=== PATIENT | male | born 1980 | race Caucasian/White ===

== ENCOUNTER 2024-03-14 18:52 | Emergency (ER) | payer OTHER ==
[2024-03-14] MEDS ORDERED: ONDANSETRON 4 MG/2 ML VIAL ONE (19:15)
[2024-03-14] MEDS ORDERED: FAMOTIDINE 20 MG/2 ML VIAL IV ONE (19:15)
[2024-03-14 19:22] LABS: Absolute Basophils 0.1 K/uL (0-0.5); Absolute Eosinophils 0.3 K/uL (0-0.5); Absolute Lymphocytes (CBC) 1.4 K/uL (0.7-4.9); Absolute Monocytes 0.5 K/uL (0.1-1.3); Absolute Neutrophil 6.8 K/uL (1.8-8.0); Basophils % 0.7 % (0-1.3); Eosinophils % 3.3 % (0-4.4); Hematocrit 45.7 % (39.6-49.0); Hemoglobin 15.8 g/dL (13.6-17.9); Lymphocytes % 15.1 % (15.3-44.8); MCH 31.2 pg (27.0-35.0); MCHC 34.7 g/dL (32.0-36.0); MCV 89.8 fL (80-100); MPV 8.6 fL (7.6-11.3); Monocytes % 5.4 % (3.3-12.3); Neutrophils % 75.5 % (41.7-73.7); Nucleated Red Blood Cells % 0.1 % (0-0); Platelets 293 thou/uL (152-406); RBC Red Blood Cell Count 5.09 M/uL (4.33-5.43); Red Cell Distribution Width 12.8 % (12.1-15.2)
[2024-03-14 19:38] LABS: PT Prothrombin Time 11.8 SECONDS (9.4-12.5); Protime INR 1.06
[2024-03-14 19:53] LABS: ALT/SGPT 107 U/L (16-61); Albumin 3.6 g/dL (3.4-5.0); Alkaline Phosphatase 69 U/L (45-117); Anion Gap 8.2 mEq/L (5.0-15.0); BUN Blood Urea Nitrogen 16 mg/dL (7-18); Bicarbonate 28 mEq/L (21-32); Bilirubin Total 0.5 mg/dL (0.2-1.0); Globulin 3.7 g/dL (2.3-3.5); Glomerular Filtration Rate 72 ml/min (=/>90); Glucose Level 175 mg/dL (74-106); Lipase 41 U/L (13-75); Protein, Total 7.3 g/dL (6.4-8.2); Sodium Level 136 mEq/L (136-145); Troponin High Sensitivity 3.6 pg/mL (<58.9)
[2024-03-14 19:55] LABS: AST/SGOT 36 U/L (15-37); Bilirubin Direct < 0.2 mg/dL (0-0.2); Bilirubin Indirect, Calculated 0.3 mg/dL (0.2-0.8); Magnesium 2.2 mg/dL (1.6-2.4); Potassium 4.2 mEq/L (3.5-5.1)
--- NOTE | 2024-03-14 20:15 | RAD REPORT ---
EXAMINATION: ONE VIEW CHEST XR CLINICAL INDICATION: epigastric pain TECHNIQUE: Frontal chest projection is submitted. Examination is limited by patient positioning and t echnique. COMPARISON: No prior exam. FINDINGS: The lungs are well inflated and clear. The heart is normal in size. No displaced fractures identified . IMPRESSION: No acute intrathoracic abnormalities.
--- NOTE | 2024-03-14 21:28 | RAD REPORT ---
EXAM: CT brain without contrast HISTORY: DIZZINESS COMPARISON: None TECHNIQUE: Multiple contiguous axial images were obtained and a CT of the brain without contrast. Sag ittal and coronal reformats were performed. One or more of the following dose reduction techniques were used: Automated exposure control, adjust ment of the mA and/or kV according to patient size, and/or iterative reconstruction. FINDINGS: No evidence of hydrocephalus, intracranial hemorrhage, or extra-axial fluid collection. The brain is normal in morphology. No evidence of midline shift or areas of brain edema. The calvarium is intact. The visualized paranasal sinuses and mastoid air cells are essentially clear . IMPRESSION: No evidence of acute intracranial abnormality.
--- NOTE | 2024-03-14 21:43 | RAD REPORT ---
EXAMINATION: CT ABDOMEN AND PELVIS WITH CONTRAST CLINICAL INDICATION: EPIGASTRIC PAIN TECHNIQUE: CT abdomen and pelvis was performed, after the administration of IV contrast, as per [facility] protocol. Axial, sagittal and coronal reconstructions were obtained. One or more of the following dose reduction techniques were used: Automated exposure control, adjustment of the mA and k V according to patient size, and iterative reconstruction. Unless otherwise specified, incidental findings do not require dedicated imaging follow-up. COMPARISON: No prior exam. FINDINGS: LOWER CHEST: The visualized lung bases are clear. LIVER: Normal in size and contour. Tiny low-density lesions are too small to fully characterize but h ighly likely benign. Grossly unremarkable gallbladder. SPLEEN: Normal size. No focal lesion. PANCREAS: No mass, ductal dilation, or maximus-pancreatic fluid. ADRENALS: Normal; no mass. KIDNEYS: Normal size and contour. No hydronephrosis. Tiny calculus right kidney. GASTROINTESTINAL TRACT: No evidence of free air, significant intra-abdominal free fluid, bowel obstru ction or abscess. Mild sigmoid diverticulosis coli without diverticulitis. APPENDIX: Normal appendix. LYMPH NODES: No lymphadenopathy. MUSCULOSKELETAL: No acute or suspicious osseous abnormality. ADDITIONAL FINDINGS: Small fat-containing umbilical hernia. IMPRESSION: No acute or concerning abnormalities seen in the abdomen or pelvis.
--- NOTE | 2024-03-14 22:06 | ER ---
Nurse's Notes [facility] Name: Chilo Weinstein Age: 43 yrs Sex: Male : 1980 Arrival Date: 03/14/2024 Time: 18:52 Bed 17 Private MD: Diagnosis: Epigastric pain;Nausea with vomiting, unspecified;Dizziness and giddiness Presentation: 03/14 18:53 Chief complaint: EMS states: ABDOMINAL PAIN x1 HR, NO VOMITING. Coronavirus screen: At bp this time, the client does not indicate any symptoms associated with coronavirus-19. Ebola Screen: No symptoms or risks identified at this time. Initial Sepsis Screen: Does the patient meet any 2 criteria? No. Patient's initial sepsis screen is negative. Does the patient have a suspected source of infection? No. Patient's initial sepsis screen is negative. Risk Assessment: Do you want to hurt yourself or someone else? Patient reports no desire to harm self or others. Onset of symptoms was March 14, 2024 at 17:45. 18:53 Method Of Arrival: EMS: [facility] bp 18:53 Acuity: HILL[facility] 3 bp Triage Assessment: 18:54 General: Appears in no apparent distress. Behavior is calm, cooperative, appropriate bp for age. Pain: Complains of pain in abdomen. EENT: No deficits noted. Neuro: No deficits noted. Cardiovascular: No deficits noted. Respiratory: No deficits noted. GI: Reports upper abdominal pain. : No signs and/or symptoms were reported regarding the genitourinary system. Derm: No deficits noted. Musculoskeletal: No deficits noted. Historical: - Allergies: 18:54 No Known Allergies; bp - Home Meds: 18:54 None [Active]; bp - PMHx: 18:54 None; bp - Immunization history:: Adult Immunizations up to date. - Infectious Disease History:: Denies. - Social history:: Smoking status: Patient denies any tobacco usage or history of. Screenin:55 [facility] ED Fall Risk Assessment (Adult) History of falling in the last 3 months, bp including since admission No falls in past 3 months (0 pts) Confusion or Disorientation No (0 pts) Intoxicated or Sedated No (0 pts) Impaired Gait No (0 pts) Mobility Assist Device Used No (0 pt) Altered Elimination No (0 pt) Score/Fall Risk Level 0 - 2 = Low Risk. Abuse screen: Denies threats or abuse. Denies injuries from another. Nutritional screening: No deficits noted. Tuberculosis screening: No symptoms or risk factors identified. Assessment: 18:55 General: SEE TRIAGE NOTE. bp 19:10 Reassessment: Patient appears in no apparent distress at this time. Patient and/or kj2 family updated on plan of care and expected duration. Pain level reassessed. Patient is alert, oriented x 3, equal unlabored respirations, skin warm/dry/pink. 19:10 GI: Bowel sounds present X 4 quads. kj2 20:14 Reassessment: Patient appears in no apparent distress at this time. Patient and/or kj2 family updated on plan of care and expected duration. Pain level reassessed. Patient is alert, oriented x 3, equal unlabored respirations, skin warm/dry/pink. 21:56 Reassessment: Patient appears in no apparent distress at this time. Patient and/or kj2 family updated on plan of care and expected duration. Pain level reassessed. Patient is alert, oriented x 3, equal unlabored respirations, skin warm/dry/pink. 22:13 GI: Abd is non tender X 4 quads. kj2 Vital Signs: 18:53 BP 130 / 78; Pulse 84; Resp 16; Temp 98; Pulse Ox 97% ; bp 19:07 BP 120 / 74; Pulse 85; Resp 18; Pulse Ox 98% on R/A; kj2 20:13 BP 115 / 71; Pulse 76; Resp 18; Pulse Ox 98% on R/A; kj2 21:56 BP 120 / 73; Pulse 80; Resp 18; Pulse Ox 98% on R/A; kj2 ED Course: 18:53 Patient arrived in ED. bp 18:53 Jimmy Harmon PA is PHCP. cp 18:53 Jimmy Joyce MD is Attending Physician. cp 18:54 Triage completed. bp 18:54 Arm band placed on. bp 18:55 Patient has correct armband on for positive identification. bp 19:01 Farrukh Wagner, RN is Primary Nurse. bp 19:01 Initial lab(s) drawn, by mo, sent to lab. Inserted saline lock: 20 gauge in right bp antecubital area, using aseptic technique. Blood collected. Flushed with 10 mL NS. 19:07 Report received from DORI LONG. kj2 19:29 Provided Education on: CALL LIGHT, FALL PRECAUTIONS. kj2 20:14 XRAY Chest (1 view) In Process Unspecified. EDMS 21:26 CT Head Brain wo Cont In Process Unspecified. EDMS 21:33 CT Abd/Pelvis - IV Contrast Only In Process Unspecified. EDMS 22:06 Misbah Howard MD is Referral Physician. cp 22:15 IV discontinued, intact, bleeding controlled, No redness/swelling at site. Pressure kj2 dressing applied. 22:15 No provider procedures requiring assistance completed. kj2 Administered Medications: 19:28 Drug: Ondansetron IVP 4 mg IVP once; over 2 minutes Route: IVP; Site: right antecubital;kj2 20:13 Follow up: Response: No adverse reaction kj2 19:28 Drug: Famotidine IVP 20 mg IVP once; dilute with 10 mL 0.9% NaCl; give over 2 minutes kj2 Route: IVP; Site: right antecubital; 20:13 Follow up: Response: No adverse reaction kj2 Medication: 18:55 VIS not applicable for this client. bp Outcome: 22:06 Discharge ordered by . cp 22:14 Discharged to home ambulatory, kj2 22:14 Condition: stable 22:14 Discharge instructions given to patient, Instructed on discharge instructions, follow up and referral plans. Demonstrated understanding of instructions, follow-up care, 22:28 Patient left the ED. kj2 Signatures: Dispatcher [employer] EDIA Jimmy Harmon PA PA cp Peltier, Brian, RN RN bp Sophie Jimenez RN RN kj2
--- NOTE | 2024-03-14 22:06 | EDPHYS ---
Physician Documentation [facility] Name: Chilo Weinstein Age: 43 yrs Sex: Male : 1980 Arrival Date: 03/14/2024 Time: 18:52 Bed 17 Private MD: ED Physician Jimmy Joyce HPI: 03/14 19:00 This 43 yrs old Male presents to ER via EMS with complaints of Abdominal Pain. cp 19:00 The patient presents with abdominal pain in the epigastric area. Onset: The cp symptoms/episode began/occurred today. 19:00 The symptoms do not radiate. cp 19:00 Associated signs and symptoms: Pertinent positives: nausea, dizziness, Pertinent cp negatives: chest pain, constipation, diarrhea, fever, vomiting. The symptoms are described as waxing/waning. Severity of pain: in the emergency department the pain has improved mildly. Historical: - Allergies: 18:54 No Known Allergies; bp - Home Meds: 18:54 None [Active]; bp - PMHx: 18:54 None; bp - Immunization history:: Adult Immunizations up to date. - Infectious Disease History:: Denies. - Social history:: Smoking status: Patient denies any tobacco usage or history of. ROS: 19:05 Constitutional: Negative for body aches, chills, fever, cp 19:05 Eyes: Negative for injury, pain, redness, and discharge, cp 19:05 Cardiovascular: Negative for chest pain, palpitations, 19:05 Respiratory: Negative for cough, shortness of breath, wheezing, 19:05 Abdomen/GI: Positive for abdominal pain, nausea, vomiting, of the epigastric area, Negative for diarrhea, constipation, 19:05 Neuro: Positive for dizziness, Negative for altered mental status, headache, numbness, syncope, 19:05 All other systems are negative, Exam: 19:10 Constitutional: The patient appears in no acute distress, alert, awake, cp non-diaphoretic, non-toxic, well developed, well nourished, uncomfortable, 19:10 Head/Face: Normocephalic, atraumatic. cp 19:10 Eyes: Periorbital structures: appear normal, Conjunctiva: normal, no exudate, no injection, Sclera: no appreciated abnormality, Lids and lashes: appear normal, bilaterally, 19:10 ENT: External ear(s): are unremarkable, Nose: is normal, Mouth: Lips: moist, Oral mucosa: pink and intact, moist, Posterior pharynx: Airway: no evidence of obstruction, patent, 19:10 Chest/axilla: Inspection: normal, Palpation: crepitus, is not appreciated, tenderness, is not appreciated, 19:10 Cardiovascular: Rate: normal, Rhythm: regular, 19:10 Respiratory: the patient does not display signs of respiratory distress, Respirations: normal, no use of accessory muscles, no retractions, labored breathing, is not present, Breath sounds: are clear throughout, no decreased breath sounds, no stridor, no wheezing, 19:10 Abdomen/GI: Inspection: abdomen appears normal, Bowel sounds: active, all quadrants, Palpation: soft, in all quadrants, moderate abdominal tenderness, in the epigastric area, 19:10 Back: CVA tenderness, is absent, 19:10 Neuro: Orientation: to person, place \T\ time. Mentation: is normal, Motor: moves all fours, strength is normal, Sensation: is normal, 19:30 ECG was reviewed by the Attending Physician. Vital Signs: 18:53 BP 130 / 78; Pulse 84; Resp 16; Temp 98; Pulse Ox 97% ; bp 19:07 BP 120 / 74; Pulse 85; Resp 18; Pulse Ox 98% on R/A; kj2 20:13 BP 115 / 71; Pulse 76; Resp 18; Pulse Ox 98% on R/A; kj2 21:56 BP 120 / 73; Pulse 80; Resp 18; Pulse Ox 98% on R/A; kj2 MDM: 18:53 Medical Screening Exam initiated cp 22:05 Data reviewed: vital signs, nurses notes, lab test result(s), EKG, radiologic studies, cp CT scan, plain films, and as a result, I will discharge patient. 03/14 18:54 Order name: Basic Metabolic Panel; Complete Time: 20:13 03/14 20:13 Interpretation: Normal except: GLUC 175; GFR 72. 03/14 18:54 Order name: CBC with Diff; Complete Time: 20:13 03/14 20:14 Interpretation: Normal except: WILLIAM% 75.5; LYM% 15.1. 03/14 18:54 Order name: LFT's; Complete Time: 20:13 03/14 20:14 Interpretation: Normal except: ALT 107; GLOB 3.7; A/G 1.0. 03/14 18:54 Order name: Magnesium; Complete Time: 20:13 03/14 18:54 Order name: PT-INR; Complete Time: 20:13 cp 03/14 18:54 Order name: Troponin HS; Complete Time: 20:13 cp 03/14 20:14 Interpretation: Reviewed. 03/14 18:54 Order name: Lipase; Complete Time: 20:13 03/14 18:54 Order name: XRAY Chest (1 view); Complete Time: 22:02 cp 03/14 22:02 Interpretation: Report review. 03/14 20:15 Order name: CT Head Brain wo Cont; Complete Time: 22:02 03/14 22:03 Interpretation: Report reviewed. 03/14 20:15 Order name: CT Abd/Pelvis - IV Contrast Only; Complete Time: 22:02 03/14 18:54 Order name: Cardiac monitoring; Complete Time: 19:01 03/14 18:54 Order name: EKG - Nurse/Tech; Complete Time: 19:28 cp 03/14 18:54 Order name: IV Saline Lock; Complete Time: 19:01 03/14 18:54 Order name: Labs collected and sent; Complete Time: 19:01 03/14 18:54 Order name: O2 Per Protocol; Complete Time: 19:01 03/14 18:54 Order name: O2 Sat Monitoring; Complete Time: 19:01 03/14 22:04 Order name: PO challenge; Complete Time: 22:15 cp EC:30 Rate is 82 beats/min. Rhythm is regular. NV interval is normal. QRS interval is normal. cp QT interval is normal. T waves are Inverted in lead aVR. Interpreted by me. Reviewed by me. Administered Medications: 19:28 Drug: Ondansetron IVP 4 mg IVP once; over 2 minutes Route: IVP; Site: right antecubital;kj2 20:13 Follow up: Response: No adverse reaction kj2 19:28 Drug: Famotidine IVP 20 mg IVP once; dilute with 10 mL 0.9% NaCl; give over 2 minutes kj2 Route: IVP; Site: right antecubital; 20:13 Follow up: Response: No adverse reaction kj2 Disposition Summary: 03/14/24 22:06 Discharge Ordered Notes: Location: Home cp Problem: new cp Symptoms: have improved cp Condition: Stable cp Diagnosis - Epigastric pain cp - Nausea with vomiting, unspecified cp - Dizziness and giddiness cp Followup: cp - With: Misbah Howard MD - When: 1 week - Reason: Recheck today's complaints Discharge Instructions: - Discharge Summary Sheet cp - Abdominal Pain, Adult cp - Dizziness cp - Nausea and Vomiting, Adult cp Forms: - Medication Reconciliation Form cp - Antibiotic Education cp - Prescription Opioid Use cp - Patient Portal Instructions cp - Leadership Thank You Letter cp Prescriptions: - Protonix 40 mg Oral Tablet - take 1 tablet ORAL route once daily; 30 tablet; Refills: 0, Product Selection cp Permitted - Zofran 4 mg Oral Tablet - take 1 tablet ORAL route every 12 hours As needed; 20 tablet; Refills: 0, cp Product Selection Permitted Signatures: Dispatcher [employer] EDMS Jimmy Harmon PA PA cp Farrukh Wagner RN RN bp Sophie Jimenez RN RN kj2 Corrections: (The following items were deleted from the chart) 18:55 18:55 BASIC METABOLIC PANEL+C.LAB.BRZ ordered. EDMS EDMS 18:55 18:55 CBC+H.LAB.BRZ ordered. EDMS EDMS 18:55 18:55 HEPATIC FUNCTION+C.LAB.BRZ ordered. EDMS EDMS 18:55 18:55 MAGNESIUM+C.LAB.BRZ ordered. EDMS EDMS 18:55 18:55 PROTIME (+INR)+COAG.LAB.BRZ ordered. EDMS EDMS 18:55 18:55 Troponin High Sensitivity+C.LAB.BRZ ordered. EDMS EDMS 18:55 18:55 LIPASE+C.LAB.BRZ ordered. EDMS EDMS 18:55 18:55 Chest Single View+RAD.RAD.BRZ ordered. EDMS EDMS 20:14 20:13 Reviewed. cp cp
[2024-03-15 01:29] VITALS: TEMP 98
[2024-03-15 01:35] VITALS: O2SAT 98
[2024-03-15 01:46] VITALS: BP 120/73
--- NOTE | 2024-03-18 12:06 | EKG ---
Test Date: 2024-03-14 Test Time: 19:22:16 Edging Machine Setter: JOHAN MEASUREMENT RESULTS: Intervals: Rate: 82 NH: 142 QRSD: 86 QT: 344 QTc: 401 [place]: P: 56 NH: 142 QRS: 67 T: 49 INTERPRETIVE STATEMENTS: Normal sinus rhythm Normal ECG No previous ECG available for comparison Electronically Signed On 03-18-24 12:02:45 REGIONAL EDUCATION COORDINATOR by Aidan Saez
== END 2024-03-14 22:28 | disposition home or self-care (01) ==
LOC: ER 18:52
DX: R10.13 Epigastric pain (principal); R11.2 Nausea with vomiting, unspecified; R42 Dizziness and giddiness
CPT/HCPCS: 85025; 80048; 36415; 83735; 85610; 80076; 84484; 83690; 70450; 74177; 71045; 96375; 96374; 99284; Q9967; J2405; 93005